=== PATIENT | male | born 1950 | race African-American/Black ===

== ENCOUNTER 2019-04-22 17:33 | Emergency (ER) | payer MEDICARE, MEDICAID ==
[~2019-04-22] VITALS: Ht 167.6 cm; Wt 63.6 kg
[~2019-04-22 17:33] MED LIST: AMLO10TA55 PO; CINA30 PO; CLON-570 PO; DOCU-281 PO; DOXA1 PO; FOLI0.8T22 PO; HYDR25TA84 PO; OMEP20 PO; SEVE800T17 PO
[2019-04-22] MEDS ORDERED: METHOCARBAMOL 500 MG TABLET PO ONE (18:45)
[2019-04-22] MEDS ORDERED: KETOROLAC TROMETHAMINE 10 MG TABLET PO ONE (18:45)
[2019-04-22 19:48] VITALS: BP 143/70
== END 2019-04-22 20:00 | disposition home or self-care (01) ==
LOC: EMS 17:33
DX: S13.4XXA Sprain of ligaments of cervical spine, initial encounter (principal); S39.012A Strain of muscle, fascia and tendon of lower back, initial encounter; S46.912A Strain of unspecified muscle, fascia and tendon at shoulder and upper arm level, left arm, initial encounter; V49.49XA Driver injured in collision with other motor vehicles in traffic accident, initial encounter; Y93.89 Activity, other specified; Y92.89 Other specified places as the place of occurrence of the external cause; Y99.8 Other external cause status